=== PATIENT | female | born 1980 | race Caucasian/White ===

== ENCOUNTER 2017-02-18 14:12 | Emergency (ER) | payer OTHER ==
[2017-02-18 14:27] VITALS: RESP 17
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
[2017-02-18 15:14] LABS: Appearance,Urine Clear (Clear); Bilirubin,Urine Negative (Negative); Glucose,Urine (UA) Negative (Negative); Ketones,Urine Negative (Negative); Leukocyte Esterase,Urine Negative (Negative); Nitrite,Urine Negative (Negative); PH, Urine 5.5 (5.0-8.0); Protein,Urine Negative (Negative); Specific Gravity,Urine 1.015 (1.001-1.035); UA Billing (MACRO vs. MICRO) CHEM; Urobilinogen,Urine <2.0 mg/dL (<2.0)
--- NOTE | 2017-02-18 15:17 | XR ---
EXAM TYPE: LUMBAR SPINE X RAY SERIES COMPARISON: NONE HISTORY: Lower back pain TECHNIQUE: 4 views are submitted. FINDINGS: Alignment is anatomic. The pedicles are intact. The transverse processes are intact. There is no s pondylolysis or spondylolisthesis. Curvature of the spine seen. Facet arthropathy L5-S1. IMPRESSION: 1. No acute process. Mild facet arthropathy L5-S1. If symptoms persist consider MRI.
[2017-02-18 15:36] VITALS: BP 118/74; PULSE 77; TEMP 98.2
== END 2017-02-18 15:34 | disposition home or self-care (01) ==
LOC: EDBD → EC 14:12
DX: S39.012A Strain of muscle, fascia and tendon of lower back, initial encounter (principal); M46.97 Unspecified inflammatory spondylopathy, lumbosacral region; M43.8X4 Other specified deforming dorsopathies, thoracic region; Z88.1 Allergy status to other antibiotic agents; Z88.5 Allergy status to narcotic agent; Z88.8 Allergy status to other drugs, medicaments and biological substances; V49.88XA Car occupant (driver) (passenger) injured in other specified transport accidents, initial encounter; Y92.410 Unspecified street and highway as the place of occurrence of the external cause
CPT/HCPCS: 72110; 81003; 81025; 99284

== ENCOUNTER 2017-02-27 13:36 | Emergency (ER) | payer OTHER ==
[2017-02-27 13:45] VITALS: BP 126/66; PULSE 111; RESP 18; TEMP 97.6
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
== END 2017-02-27 14:14 | disposition home or self-care (01) ==
LOC: EC 13:36
DX: M54.5 Low back pain (principal); Z88.2 Allergy status to sulfonamides; Z88.5 Allergy status to narcotic agent; Z88.8 Allergy status to other drugs, medicaments and biological substances
CPT/HCPCS: 99283

== ENCOUNTER 2017-03-24 16:07 | Emergency (ER) | payer OTHER ==
[2017-03-24 16:14] VITALS: BP 124/72; PULSE 92; RESP 18; TEMP 97.3
[2017-03-24] MEDS ORDERED: BUPIVACAINE (PF) 0.5% 30 ML VIAL SQ STA (16:22)
--- NOTE | 2017-03-24 16:41 | ED ---
ENT HPI - General Chief complaint: Dental/Oral Stated complaint: Oral Pain Time Seen by Provider: 03/24/17 16:16 Source: patient Mode of arrival: ambulatory Limitations: no limitations - History of Present Illness Initial comments: 36-year-old female patient presents to emergency department today for complaints of left-sided dental pain. Patient states she was eating chicken nuggets about an hour ago and felt her tooth crack. Patient states that she isn 't having significant pain to that side since. She states she does have dental insurance but the pain was too bad wait for appointment. Patient denies any swelling. Denies any headache, neck pain, ear pain, difficulty swallowing, shortness of breath, fever, or chills. Denies inability to open mouth. - Related Data Previous Rx's Medication Instructions Recorded HYDROcodone/APAP 5-325MG [[place] 1 tab PO Q6H PRN #12 tab 02/18/17 5-325] Hydrocodone/Acetaminophen [[place] 1 tab PO Q6HR PRN #15 tab 03/24/17 5-325] Allergies Allergy/AdvReac Type Severity Reaction Status Date / Time acetaminophen Allergy Unknown Verified 03/24/17 16:14 [From Tylenol-Codeine #3] codeine Allergy Unknown Verified 03/24/17 16:14 [From Tylenol-Codeine #3] sulfamethoxazole Allergy Unknown Verified 03/24/17 16:14 [From Bactrim] tramadol Allergy Unknown Verified 03/24/17 16:14 trimethoprim [From Bactrim] Allergy Unknown Verified 03/24/17 16:14 Review of Systems ROS Statement: Those systems with pertinent positive or pertinent negative responses have been documented in the HPI. ROS Other: All systems not noted in ROS Statement are negative. Past Medical History Past Medical History: No Reported History History of Any Multi-Drug Resistant Organisms: None Reported Past Surgical History: Tubal Ligation Past Psychological History: No Psychological Hx Reported Smoking Status: Never smoker Past Alcohol Use History: None Reported Past Drug Use History: None Reported General Exam Limitations: no limitations General appearance: alert, in no apparent distress Head exam: Present: atraumatic, normocephalic, normal inspection ENT exam: Present: normal exam, normal oropharynx, mucous membranes moist, TM's normal bilaterally, other (Fractured tooth #18, appears to be Samu[place] 2 tender to percussion. No gingival erythema, swelling, or abscess present.) Neck exam: Present: normal inspection. Absent: tenderness, meningismus, lymphadenopathy Respiratory exam: Present: normal lung sounds bilaterally. Absent: respiratory distress, wheezes, rales, rhonchi, stridor Cardiovascular Exam: Present: regular rate, normal rhythm, normal heart sounds. Absent: systolic murmur, diastolic murmur, rubs, gallop, clicks Neurological exam: Present: alert, oriented X3, CN II-XII intact Psychiatric exam: Present: normal affect, normal mood Skin exam: Present: warm, dry, intact, normal color. Absent: rash Course Vital Signs 03/24/17 16:13 Temperature 97.3 F L Pulse Rate 92 Respiratory 18 Rate Blood Pressure 124/72 O2 Sat by Pulse 95 Oximetry Medical Decision Making - Medical Decision Making 36 year-old female patient presented to emergency department today after she broke a tooth in the left lower side. Physical exam did reveal a fracture of tooth #18. Dental block was performed using 3 mL of bupivacaine. She did have relief of symptoms prior to discharge. Patient was given a prescription for [place] for pain control. Patient started a pop with primary care physician in one to 2 days for recheck. Patient also instructed to follow-up with a dentist as soon as possible. Patient does have dental insurance and states that she will make an appointment. Patient instructed to return for any new, worsening, or concerning symptoms. Disposition Clinical Impression: Tooth fracture, Pain, dental Disposition: HOME SELF-CARE Condition: Good Instructions: Toothache (ED) Additional Instructions: Follow-up with dentist as soon as possible for recheck. Take pain medication as directed. Follow-up with primary care physician 1-2 days for recheck. Return for any new, worsening, or concerning symptoms. Prescriptions: Hydrocodone/Acetaminophen [[place] 5-325] 1 tab PO Q6HR PRN #15 tab PRN Reason: Pain Referrals: None,Stated [Primary Care Provider] - 1-2 days Time of Disposition: 16:40
== END 2017-03-24 16:45 | disposition home or self-care (01) ==
LOC: EC 16:07
DX: S02.5XXA Fracture of tooth (traumatic), initial encounter for closed fracture (principal); Z88.2 Allergy status to sulfonamides; Z88.6 Allergy status to analgesic agent; Z88.5 Allergy status to narcotic agent
CPT/HCPCS: 64400; 99282